=== PATIENT | female | born 1955 | race African-American/Black ===

== ENCOUNTER 2017-02-02 13:30 | Emergency (ER) | payer BC ==
[2017-02-02 14:55] LABS: BASOPHILS 0.1 %; BASOPHILS ABSOLUTE 0.03 10/3/uL (0.0-0.16); EOSINOPHILS 0.1 %; EOSINOPHILS ABSOLUTE 0.03 10/3/uL (0.0-0.53); HEMOGLOBIN 11.8 g/dL (12.0-16.0); IMMATURE GRANULOCYTES 0.3 %; IMMATURE GRANULOCYTES ABSOLUTE 0.08 10/3/uL (0.0-0.11); LYMPHOCYTES 7.5 %; LYMPHOCYTES ABSOLUTE 1.84 10/3/uL (0.67-4.30); MEAN CORPUS HGB CONC 33.4 g/dL (32.0-36.0); MEAN CORPUSCULAR HEMOGLOB 28.2 pg (26.0-34.0); MEAN PLATELET VOLUME 10.3 fL (9.2-13.0); MONOCYTES ABSOLUTE 1.47 10/3/uL (0.21-1.20); NEUTROPHILS ABSOLUTE 21.24 10/3/uL (2.02-8.40); RBC DISTRIBUTION WIDTH 15.1 % (12.0-16.0); RED CELL COUNT 4.19 10/6/uL (4.0-5.6)
[2017-02-02 14:58] LABS: ER CBC TAT 0 Hrs 09 Mins; HEMATOCRIT 35.3 % (36.0-48.0); MANUAL DIFF NO %; MEAN CORPUSCULAR VOLUME 84.2 fL (80-100); PLATELET COUNT 436 10/3/uL (150-400); WHITE BLOOD CELLS 24.7 10/3/uL (4.5-10.5)
[2017-02-02 15:11] LABS: ALBUMIN 3.9 G/DL (3.5-5.0); ALKALINE PHOSPHATASE 127 U/L (45-117); BUN (BLOOD UREA NITROGEN) 6 MG/DL (6-23); CALCIUM, SERUM 9.8 MG/DL (8.5-10.4); CHLORIDE, SERUM 100 MMOL/L (96-112); CO2 (CARBON DIOXIDE) 24 MMOL/L (24-34); CREATININE 0.73 MG/DL (0.55-1.02); GFR AFRICAN AMERICAN 102 ML/MIN (>=60); GFR NON AFRICAN AMERICAN 88 ML/MIN (>=60); GLUCOSE, SERUM 243 MG/DL (60-99); POTASSIUM, SERUM 3.6 MMOL/L (3.5-5.3); SGOT(AST) 23 U/L (5-40); SGPT(ALT) 26 U/L (5-65); SODIUM, SERUM 134 MMOL/L (135-148); TOTAL BILIRUBIN 0.5 MG/DL (0-1.2); TOTAL PROTEIN 7.9 G/DL (6.0-8.5)
[2017-02-02 15:33] LABS: WBC (NOT ORDERED) (RFLEX) 0 (0-5)
[2017-02-02 15:42] LABS: ASCORBIC ACID (UR NOT ORDER) NEG (NEG); BILIRUBIN, URINE SMALL (NEG); ER URINALYSIS TAT 0 Hrs 14 Mins; KETONE, URINE TRACE MG/DL (NEG); LEUKOCYTE ESTERASE(NOT OR NEG (NEG); NITRITE (URINE) NEG (NEG)
[2017-02-02 16:03] LABS: CPK 89 U/L (0-200)
[2017-05-19] MEDS ORDERED: AMIT50 PO (11:35)
[2017-05-19] MEDS ORDERED: FLEX PO (11:36)
[2017-05-19] MEDS ORDERED: NORV10 PO (11:36)
[2017-05-19] MEDS ORDERED: LIPITOR10 PO (11:37)
[2017-05-19] MEDS ORDERED: PAXIL40 MG PO (11:38)
[2017-05-19] MEDS ORDERED: FERROUS SULF325 M1 (11:39)
[2017-05-19] MEDS ORDERED: GLUCOPHAGE1000 MG PO (11:40)
[2017-05-19] MEDS ORDERED: BALANCED B PO (11:41)
[2017-05-19] MEDS ORDERED: MUCUSRELIEF PO (11:41)
[2017-05-19] MEDS ORDERED: PEPTO BISMOL LIQ1 ML PO (11:43)
[2017-05-19] MEDS ORDERED: TUMSROLL PO (11:43)
[2017-05-19] MEDS ORDERED: MIRALAX POWDER1 PKT PO (11:44)
[2017-05-19] MEDS ORDERED: ASABAYER PO (11:46)
== END 2017-02-02 18:23 | disposition home or self-care (01) ==
LOC: ER 13:30
PROVIDERS: Physician Assistant
DX: K59.00 Constipation, unspecified (principal); D72.829 Elevated white blood cell count, unspecified; D64.9 Anemia, unspecified; E87.1 Hypo-osmolality and hyponatremia; E11.9 Type 2 diabetes mellitus without complications; I10 Essential (primary) hypertension; F17.200 Nicotine dependence, unspecified, uncomplicated; Z88.5 Allergy status to narcotic agent
CPT/HCPCS: 74022; 74176; 80053; 81001; 82550; 83690; 85025; 96372; 99284; A9270-GY; J2765